=== PATIENT | female | born 1960 | race Caucasian/White ===

== ENCOUNTER → 2018-04-27 | Outpatient (CLI) | payer BC ==
--- NOTE | 2018-04-28 15:11 | MAMMOGRAPHY REPORT ---
BILATERAL DIGITAL SCREENING MAMMOGRAM TOMOSYNTHESIS WITH CAD: 04/27/2018 CLINICAL HISTORY: Routine screening. Patient has no complaints. TECHNIQUE: The study was acquired using full field digital technology and interpreted from soft copy. Breast tomosynthesis in addition to standard 2D mammography was performed. Current study was also ev aluated with a Computer Aided Detection (CAD) system. COMPARISON: Comparison is made to exams dated: 08/07/2016 mammogram, 07/09/2015 mammogram, 3 mammogram, and 07/12/2012 mammogram. BREAST COMPOSITION: The tissue of both breasts is heterogeneously dense, which may obscure small mass es. FINDINGS: No suspicious masses, calcifications, or areas of architectural distortion are noted in either breast . There has been no significant interval change compared to prior exams. Nodular 9 mm focal asymmetr y in the right 12:00 posterior breast is stable mammographically dating back to at least the 2012 exa m, and considered benign given long-term stability. IMPRESSION: ACR BI-RADS CATEGORY 2: BENIGN There is no mammographic evidence of malignancy. A 1 year screening mammogram is recommended.( 019) The patient will receive written notification of the results. Some breast cancers are not detected with mammography. A negative mammographic report should not pedro luis y biopsy if a clinically suggestive mass is present. Phylicia Darby M.D. ah/:04/27/2018 13:29:33 Township Clerk: RT Robby(Juan)(Jorge), [facility] letter sent: Normal 1/2 BI-RADS Code: ACR BI-RADS Category 2: Benign
--- NOTE | 2018-04-28 15:11 | MAMMOGRAPHY REPORT ---
ULTRASOUND OF BOTH BREASTS: 04/27/2018 CLINICAL HISTORY: Screening ultrasound. History of dense breasts. The patient reports no lumps or oth er complaints. COMPARISON: Comparison is made to exams dated: 04/27/2018 mammogram - [facility], mammogram, 07/09/2015 mammogram, 07/12/2012 mammogram, and 08/15/2013 mammogram. Prior out side ultrasound exams dated 2015, 2014, 2013, 2012. Findings: Real-time, high-resolution ultrasound was performed of both breasts including all 4 quadran ts and subareolar regions. No suspicious masses or other suspicious sonographic abnormalities are ev ident. In the right 9:00 breast, 3 cm from the nipple, there is a focal isoechoic region measuring 1 .2 x 1.1 cm, which appears stable compared to multiple prior ultrasound exams including the 2013 exam and is considered benign given long-term stability and likely represents a normal fat lobule or othe r benign finding. Morphologically normal bilateral axillary lymph nodes are seen. IMPRESSION: ACR BI-RADS CATEGORY 2: BENIGN There is no sonographic evidence of malignancy in either breast. A 1 year screening mammogram is recommended.(04/28/2019). Additionally, if the patient desires koby nuation with screening whole breast ultrasound, this can be performed in 1 year. The patient was norberto bally notified of the results. Phylicia Darby M.D. ah/:04/27/2018 13:47:15 Tax Compliance Officer: RT Jaquan(Juan)(Jorge), [facility] letter sent: Normal 1/2 BI-RADS Code: ACR BI-RADS Category 2: Benign
== END ==
LOC: C.MAMM 12:30
PROVIDERS: ATTEND Internal Medicine
DX: Z12.31 Encounter for screening mammogram for malignant neoplasm of breast (principal)